=== PATIENT | female | born 1975 ===

== ENCOUNTER 2018-04-09 09:32 | Emergency (ER) | payer OTHER ==
[~2018-04-09] VITALS: Ht 162.6 cm; Wt 71.7 kg
[~2018-04-09 09:32] MED LIST: MEDROL4 MG PO; ULTRACET PO
[2018-04-09] MEDS ORDERED: BYSTOLIC10 MG PO (09:56)
[2018-04-09] MEDS ORDERED: ZOLOFT50 MG PO (09:57)
== END 2018-04-09 10:28 | disposition home or self-care (01) ==
LOC: ER 09:32
DX: M79.661 Pain in right lower leg (principal)

== ENCOUNTER 2018-12-08 06:45 | Emergency (ER) | payer OTHER ==
[~2018-12-08] VITALS: Ht 162.6 cm; Wt 65.3 kg
[~2018-12-08 06:45] MED LIST changes: +BYSTOLIC10 MG PO; +ZOLOFT50 MG PO
[2018-12-08] MEDS ORDERED: EFFEXOR XR37.5 MG (07:09)
[2018-12-08] MEDS ORDERED: HYDROCHLOROTH12.5 M1 (07:10)
[2018-12-08] MEDS ORDERED: ALDACTONE25 MG (07:10)
== END 2018-12-08 09:20 | disposition home or self-care (01) ==
LOC: ER 06:45
DX: S63.682A Other sprain of left thumb, initial encounter (principal); X50.3XXA Overexertion from repetitive movements, initial encounter; Y93.89 Activity, other specified; Y92.89 Other specified places as the place of occurrence of the external cause; Y99.8 Other external cause status